=== PATIENT | male | born 1980 | race Caucasian/White ===

== ENCOUNTER 2025-07-13 15:28 | Emergency (ER) | payer BC, OTHER, SELFPAY ==
[2025-07-13 15:29] VITALS: BP 110/71
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
[2025-07-13 20:14] VITALS: BP 123/75
== END 2025-07-13 20:17 | disposition home or self-care (01) ==
LOC: EMR 15:28
PROVIDERS: EMERGENCY PHYSICIAN Student in an Organized Health Care Education/Training Program
DX: S16.1XXA Strain of muscle, fascia and tendon at neck level, initial encounter (principal); V49.40XA Driver injured in collision with unspecified motor vehicles in traffic accident, initial encounter; Y92.410 Unspecified street and highway as the place of occurrence of the external cause
CPT/HCPCS: 99284; 72125